=== PATIENT | male | born 1995 | race Caucasian/White ===

== ENCOUNTER 2017-01-18 14:44 | Emergency (ER) | payer BC ==
[~2017-01-18] VITALS: Ht 177.8 cm; Wt 87.0 kg
[2017-01-18 17:38] VITALS: BP 159/94
== END 2017-01-18 17:54 | disposition home or self-care (01) ==
LOC: RME 14:44 → EME 14:44 → RME 17:54
PROC: 0RSKXZZ Reposition Left Shoulder Joint, External Approach (ICD-10-PCS; principal; 2017-01-18)
DX: S43.015A Anterior dislocation of left humerus, initial encounter (principal); W17.89XA Other fall from one level to another, initial encounter; Y93.A5 Activity, obstacle course; Y92.838 Other recreation area as the place of occurrence of the external cause
CPT/HCPCS: 73020; 73030; 99281; 99283